=== PATIENT | female | born 1950 | race Caucasian/White ===

== ENCOUNTER → 2023-11-20 10:21 | Outpatient (REF) | payer MEDICARE, OTHER, SELFPAY | LOC: HWRAD 10:21 | PROVIDERS: ATTENDING PHYSICIAN Internal Medicine | DX: Z12.31 Encounter for screening mammogram for malignant neoplasm of breast (principal); M81.0 Age-related osteoporosis without current pathological fracture | CPT/HCPCS: 77063; 77067; 77080 ==

== ENCOUNTER → 2024-01-14 08:40 | Outpatient (REF) | payer MEDICARE, OTHER, SELFPAY ==
[2024-01-14 09:24] LABS: % Basophils 0.7 % (0-2); % Eosinophils 4.9 % (0-6); % Immature Granulocytes 0.2 % (0-0.5); % Lymphocytes 19.6 % (20.5-51.1); % Monocytes 9.1 % (1.7-9.3); % Neutrophils 65.5 % (42.2-75.2); Absolute Basophils 0.1 10^3/uL (0-0.2); Absolute Eosinophils 0.4 10^3/uL (0-0.7); Absolute Lymphocytes 1.6 10^3/uL (1.2-3.4); Absolute Monocytes 0.7 10^3/uL (0.1-0.6); Absolute Neutrophils 5.2 10^3/uL (1.4-6.5); Hematocrit 41.5 % (37.0-47.0); Hemoglobin 13.7 g/dL (12.0-16.0); Mean Corpuscular Hgb 29.7 pg (27.0-31.0); Mean Platelet Volume 10.7 fL (7.4-10.4); Nucleated Red Blood Cells % 0 %; Platelet Count 273 10^3/uL (130-400); Red Blood Cell Count 4.61 10^6/uL (4.20-5.40)
[2024-01-14 12:25] LABS: Glycohemoglobin (HgbA1c) 5.9 % (4.0-5.6)
[2024-01-14 12:57] LABS: ALT (SGPT) 20 U/L (0-35); AST (SGOT) 32 U/L (14-36); Albumin 4.7 g/dl (3.5-5.0); Alkaline Phosphatase 80 U/L (38-126); Blood Urea Nitrogen 17 mg/dl (7-17); Calcium 9.9 mg/dl (8.4-10.2); Carbon Dioxide 28 mmol/L (22-30); Chloride 97 mmol/L (98-107); Glucose 104 mg/dl (70-99); HDL Cholesterol 77 mg/dl; LDL Cholesterol, Calculated 122 mg/dl; Potassium 4.9 mmol/L (3.5-5.1); Sodium 134 mmol/L (135-145); Total Bilirubin 0.6 mg/dl (0.2-1.3); Total Cholesterol 218 mg/dl (50-199); Total Protein 7.7 g/dl (6.3-8.2); Triglyceride 95 mg/dl (10-149); Very Low Density Lipoprotein 19 mg/dl (0-30); eGFR > 60.00
[2024-01-14 13:13] LABS: TSH Reflex To Free T4 1.62 uIU/ml (0.47-4.68)
== END ==
LOC: REG 08:40
PROVIDERS: ATTENDING PHYSICIAN Internal Medicine
DX: I10 Essential (primary) hypertension (principal); R73.9 Hyperglycemia, unspecified; E78.5 Hyperlipidemia, unspecified; Z23 Encounter for immunization; M81.0 Age-related osteoporosis without current pathological fracture
CPT/HCPCS: 36415; 80053; 80061; 83036; 84443; 85025

== ENCOUNTER → 2024-10-27 09:06 | Outpatient (REF) | payer MEDICARE, OTHER, SELFPAY ==
[2024-10-27 10:16] LABS: % Basophils 1.5 % (0-2); % Eosinophils 7.1 % (0-6); % Immature Granulocytes 0.2 % (0-0.5); % Lymphocytes 24.6 % (20.5-51.1); % Monocytes 12.1 % (1.7-9.3); % Neutrophils 54.5 % (42.2-75.2); Absolute Basophils 0.1 10^3/uL (0-0.2); Absolute Eosinophils 0.3 10^3/uL (0-0.7); Absolute Lymphocytes 1.1 10^3/uL (1.2-3.4); Absolute Monocytes 0.6 10^3/uL (0.1-0.6); Absolute Neutrophils 2.5 10^3/uL (1.4-6.5); Hematocrit 41.2 % (37.0-47.0); Hemoglobin 13.7 g/dL (12.0-16.0); Mean Corp Hgb Conc. 33.3 g/dL (33.0-37.0); Mean Corpuscular Volume 90.4 fL (81.0-99.0); Mean Platelet Volume 11.3 fL (7.4-10.4); Nucleated Red Blood Cells % 0 %; Platelet Count 211 10^3/uL (130-400); Red Blood Cell Count 4.56 10^6/uL (4.20-5.40); White Blood Cell Count 4.6 10^3/uL (4.8-10.8)
[2024-10-27 10:47] LABS: ALT (SGPT) 22 U/L (0-35); AST (SGOT) 33 U/L (14-36); Albumin 4.9 g/dl (3.5-5.0); Alkaline Phosphatase 78 U/L (38-126); Blood Urea Nitrogen 14 mg/dl (7-17); Carbon Dioxide 29 mmol/L (22-30); Chloride 98 mmol/L (98-107); Glucose 103 mg/dl (70-99); HDL Cholesterol 80 mg/dl; LDL Cholesterol, Calculated 136 mg/dl; Potassium 4.9 mmol/L (3.5-5.1); Sodium 136 mmol/L (135-145); Total Bilirubin 0.9 mg/dl (0.2-1.3); Total Cholesterol 232 mg/dl (50-199); Total Protein 7.4 g/dl (6.3-8.2); Triglyceride 80 mg/dl (10-149); Very Low Density Lipoprotein 16 mg/dl (0-30); eGFR > 60.00
[2024-10-27 11:03] LABS: Vitamin D, 25-OH*** 25.3 ng/mL (30-80)
[2024-10-27 11:17] LABS: TSH Reflex To Free T4 1.94 uIU/ml (0.47-4.68)
[2024-10-27 11:39] LABS: Glycohemoglobin (HgbA1c) 5.7 % (4.0-5.6)
== END ==
LOC: REG 09:06
PROVIDERS: ATTENDING PHYSICIAN Internal Medicine
DX: I10 Essential (primary) hypertension (principal); E03.9 Hypothyroidism, unspecified; R73.9 Hyperglycemia, unspecified; M81.0 Age-related osteoporosis without current pathological fracture; Z68.21 Body mass index [BMI] 21.0-21.9, adult
CPT/HCPCS: 36415; 80053; 80061; 82306; 83036; 84443; 85025